=== PATIENT | male | born 1950 | race Caucasian/White ===

== ENCOUNTER → 2023-07-16 | Outpatient (CLI) | payer MEDICARE, OTHER ==
[~2023-07-16] MED LIST: ASPI81CH
[2023-07-17 10:55] LABS: Stool Occult Bld Immuno 1 Positive (NEGATIVE)
== END ==
LOC: LAB 13:14 → LAB SHORT 13:14
PROVIDERS: Family Medicine
DX: Z12.11 Encounter for screening for malignant neoplasm of colon (principal)
CPT/HCPCS: G0328

== ENCOUNTER 2025-03-07 12:05 | Day surgery (SDC) | payer MEDICARE, OTHER ==
[~2025-03-07] VITALS: Ht 185.4 cm; Wt 77.2 kg
[~2025-03-07 12:05] MED LIST changes: +Balanced Salt Epinephrine Irrigation Solution 500 mL IR SCH; +Moxifloxacin HCL 0.5 MG/0.1 ML 0.4MLSYR RIGHTEYE SCH; +Ondansetron 4 MG SoluTab MM PRN; +PHENYLEPHRINE\\TROPICAMIDE\\TETRACAINE OPHTHALMIC DILATING SOLN RIGHTEYE PRN; +Povidone-Iodine 450 DROP/30 ML Solution ONE; +Povidone-Iodine 450 DROP/30 ML Solution RIGHTEYE SCH; +Tetracaine HCl/Pf 0.5% Opth Soln 4 ml ONE
--- NOTE | 2025-03-07 12:49 | NUR ---
03/07/25 1249 Hortencia Perry PT STATES ANXIETY LEVEL IS 4/10 IN PREOP BEFORE 10MG PO VALIUM. CALL LIGHT IN HAND PT IS ON CONTINUOUS PULSE OX MONITORING
--- NOTE | 2025-03-07 13:17 | NUR ---
03/07/25 1317 Lynne Mendosa 1311 BP:176/90 HR:79 O2%100 RESP:16
[2025-03-07 13:32] VITALS: BP 146/77
--- NOTE | 2025-03-07 13:37 | NUR ---
03/07/25 [id number] Diana Kemp FRIEND CALLED TO PULL UP TO PATIENT [employer]AD [employer]
== END 2025-03-07 13:59 | disposition home or self-care (01) ==
LOC: ORSCSDS 12:05
PROVIDERS: Student in an Organized Health Care Education/Training Program
PROC: 08RJ3JZ Replacement of Right Lens with Synthetic Substitute, Percutaneous Approach (ICD-10-PCS; principal; 2025-03-07 14:00)
DX: H25.813 Combined forms of age-related cataract, bilateral (principal)
CPT/HCPCS: A9270; V2632

== ENCOUNTER 2025-06-08 12:36 | Day surgery (SDC) | payer MEDICARE, OTHER ==
[~2025-06-08] VITALS: Ht 185.4 cm; Wt 77.2 kg
[~2025-06-08 12:36] MED LIST changes: -Balanced Salt Epinephrine Irrigation Solution 500 mL IR SCH; -Moxifloxacin HCL 0.5 MG/0.1 ML 0.4MLSYR RIGHTEYE SCH; -Ondansetron 4 MG SoluTab MM PRN; -PHENYLEPHRINE\\TROPICAMIDE\\TETRACAINE OPHTHALMIC DILATING SOLN RIGHTEYE PRN; -Povidone-Iodine 450 DROP/30 ML Solution ONE; -Povidone-Iodine 450 DROP/30 ML Solution RIGHTEYE SCH; +Ropivacaine 0.5% HCL/PF 5 MG/ML 30ML Vial ONE; -Tetracaine HCl/Pf 0.5% Opth Soln 4 ml ONE
[2025-06-08] MEDS ORDERED: Dexamethasone Sod Phos 10 MG/ML 1ML VIAL ONE ×2 (13:03→14:37)
[2025-06-08] MEDS ORDERED: Midazolam HCl 1MG / ML 2ML Vial ONE (13:03)
[2025-06-08] MEDS ORDERED: CeFAZolin Sodium 2,000 MG VIAL ONE (13:06)
[2025-06-08] MEDS ORDERED: Vitamin D1000 UNI1 (13:14)
[2025-06-08] MEDS ORDERED: ZYRTEC10 M2 (13:14)
[2025-06-08] MEDS ORDERED: PROBIOTIC1 EA15 (13:14)
[2025-06-08] MEDS ORDERED: TURMERIC500 M2 (13:16)
--- NOTE | 2025-06-08 14:28 | NUR ---
06/08/25 1428 Hortencia Perry PT HAD AXILLARY BLOCK ON THE LEFT ARM T/O AT 1414 START AT 1419 END AT 1425. PT TOLERATED WELL
[2025-06-08] MEDS ORDERED: Ondansetron HCl 2 MG / ML 2ML Vial ONE (14:37)
[2025-06-08] MEDS ORDERED: Ketorolac Tromethamine 30mg Vial ONE (14:51)
[2025-06-08] MEDS ORDERED: Ropivacaine 0.5% HCL/PF 5 MG/ML 30ML Vial ONE (15:56)
--- NOTE | 2025-06-08 16:05 | NUR ---
06/08/25 1605 Jesus Manuel Toth DELAYED MOVE TO STEPDOWN DUE TO PT GETTING ADDITIONAL NERVE BLOCK FROM [employer] HELPER
[2025-06-08] MEDS ORDERED: FentaNYL Citrate 50 MCG/ML 2 ML Injection ONE (16:15)
[2025-06-08 16:30] VITALS: BP 126/71
--- NOTE | 2025-06-08 16:31 | NUR ---
06/08/25 1631 Jesus Manuel Toth PAIN DOWN TO 2-3/10 FOLLOWING NERVE BLOCK AND TOTAL OF 25MCG FENTANYL IV
== END 2025-06-08 17:10 | disposition home or self-care (01) ==
LOC: ORSCSDS 12:36
PROVIDERS: Orthopaedic Surgery
PROC: 0RQT0ZZ Repair Left Carpometacarpal Joint, Open Approach (ICD-10-PCS; principal; 2025-06-08 14:00)
PROC: 0JBH0ZX Excision of Left Lower Arm Subcutaneous Tissue and Fascia, Open Approach, Diagnostic (ICD-10-PCS; principal; 2025-06-08 14:00)
DX: M18.12 Unilateral primary osteoarthritis of first carpometacarpal joint, left hand (principal); M67.442 Ganglion, left hand
CPT/HCPCS: C1713; J0690; J1100; J1885; J2250; J2405; J2704; J2795; J3010; J7120